=== PATIENT | male | born 1955 | race American Indian/Alaskan Native ===

== ENCOUNTER 2019-01-22 15:27 | Emergency (ER) | payer SELFPAY ==
[2019-01-22 15:47] VITALS: BP 110/78
--- NOTE | 2019-01-22 16:11 | Event Note ---
ED Screening Note Date of service: 01/22/19 Time: 16:09 ED Screening Note: This is a 63 y.o. M. that presents to the ER with left sided facial swelling and dental pain for 5 days. This initial assessment/diagnostic orders/clinical plan/treatment(s) is/are subject to change based on patients health status, clinical progression and re- assessment by fellow clinical providers in the ED. Further treatment and workup at subsequent clinical providers discretion. Patient/guardian urged not to elope from the ED as their condition may be serious if not clinically assessed and managed. Initial orders include:
[2019-01-22] MEDS ORDERED: HYDROcodone/ACETAMINOPHEN 5-325 MG TAB PO ONE (18:53)
[2019-01-22] MEDS ORDERED: AMOXICILLIN 500 MG CAP PO ONE (18:53)
--- NOTE | 2019-01-22 19:19 | Emergency Department Report ---
ED ENT HPI - General Chief complaint: Skin/Abscess/Foreign Body Stated complaint: MOUTH INFECTED Time Seen by Provider: 01/22/19 16:09 Source: patient Mode of arrival: Ambulatory Limitations: No Limitations - History of Present Illness Initial comments: This is a 63 y.o. M. that presents to the ER with left sided facial swelling and dental pain for 5 days. there is no throat or ear pain , dental pain is 5/10 aching, no facial swelling mild gum swelling. pt is tolerating po intake - Related Data Previous Rx's Medication Instructions Recorded Last Taken Type Amoxicillin [Trimox CAP] 500 mg PO Q8H 10 Days #30 capsule 01/22/19 Unknown Rx Chlorhexidine Mouthwash [Peridex] 15 ml MM BID #1 bottle 01/22/19 Unknown Rx traMADol [Ultram] 50 mg PO Q6HR PRN #12 tablet 01/22/19 Unknown Rx Allergies Allergy/AdvReac Type Severity Reaction Status Date / Time No Known Allergies Allergy Unverified 01/22/19 15:43 ED Dental HPI - General Chief complaint: Skin/Abscess/Foreign Body Stated complaint: MOUTH INFECTED Time Seen by Provider: 01/22/19 16:09 Source: patient Mode of arrival: Ambulatory Limitations: No Limitations - Related Data Previous Rx's Medication Instructions Recorded Last Taken Type Amoxicillin [Trimox CAP] 500 mg PO Q8H 10 Days #30 capsule 01/22/19 Unknown Rx Chlorhexidine Mouthwash [Peridex] 15 ml MM BID #1 bottle 01/22/19 Unknown Rx traMADol [Ultram] 50 mg PO Q6HR PRN #12 tablet 01/22/19 Unknown Rx Allergies Allergy/AdvReac Type Severity Reaction Status Date / Time No Known Allergies Allergy Unverified 01/22/19 15:43 ED Review of Systems ROS: Stated complaint: MOUTH INFECTED Other details as noted in HPI Constitutional: denies: chills, fever Eyes: denies: eye pain, eye discharge, vision change ENT: dental pain. denies: ear pain, throat pain Respiratory: denies: cough, shortness of breath, wheezing Cardiovascular: denies: chest pain, palpitations Endocrine: no symptoms reported Gastrointestinal: denies: abdominal pain, nausea, diarrhea Genitourinary: denies: urgency, dysuria Musculoskeletal: denies: back pain, joint swelling, arthralgia Skin: denies: rash, lesions Neurological: denies: headache, weakness, paresthesias Psychiatric: denies: anxiety, depression Hematological/Lymphatic: denies: easy bleeding, easy bruising ED Past Medical Hx - Past Medical History Previous Medical History?: No - Surgical History Past Surgical History?: No - Social History Smoking Status: Never Smoker Substance Use Type: None - Medications Home Medications: Home Medications Medication Instructions Recorded Confirmed Last Taken Type Amoxicillin [Trimox CAP] 500 mg PO Q8H 10 Days #30 capsule 01/22/19 Unknown Rx Chlorhexidine Mouthwash [Peridex] 15 ml MM BID #1 bottle 01/22/19 Unknown Rx traMADol [Ultram] 50 mg PO Q6HR PRN #12 tablet 01/22/19 Unknown Rx ED Physical Exam - General Limitations: No Limitations General appearance: alert, in no apparent distress - Head Head exam: Present: atraumatic, normocephalic - Eye Eye exam: Present: normal appearance - ENT ENT exam: Present: mucous membranes moist, TM's normal bilaterally, normal external ear exam - Expanded ENT Exam Expanded Mouth exam: Absent: trismus Teeth exam: Present: dental caries, dental tenderness # (21 abscess small, no drainage mild erythema gum swelling ) Throat exam: Positive: other (uvual midline no swelling no trismus no stridor no exudate no lesions). Negative: tonsillar erythema, tonsillomegaly, tonsillar exudate, R peritonsillar mass, L peritonsillar mass - Neck Neck exam: Present: normal inspection, full ROM. Absent: tenderness, lymphadenopathy - Respiratory Respiratory exam: Present: normal lung sounds bilaterally. Absent: respiratory distress, wheezes, stridor, chest wall tenderness - Cardiovascular Cardiovascular Exam: Present: regular rate, normal rhythm, normal heart sounds. Absent: systolic murmur, diastolic murmur, rubs, gallop - GI/Abdominal GI/Abdominal exam: Present: soft, normal bowel sounds - Rectal Rectal exam: Present: deferred - Extremities Exam Extremities exam: Present: normal inspection - Back Exam Back exam: Present: normal inspection, full ROM. Absent: tenderness - Neurological Exam Neurological exam: Present: alert, oriented X3 - Psychiatric Psychiatric exam: Present: normal affect, normal mood - Skin Skin exam: Present: warm, dry, intact, normal color. Absent: rash ED Course Vital Signs 01/22/19 15:44 Temperature 98.7 F Pulse Rate 106 H Respiratory 16 Rate Blood Pressure 110/78 O2 Sat by Pulse 98 Oximetry - I & D Lower Jaw Type of Procedure: Simple Site: dental abscess #21 Blade Size: 18g needle Progress: small dental abscess, I&D with 18g needle aspiration moderate purulent drainage, gauzge dress all bleeding is controlled, pain is relieve, pt given after care instructions will follow up with dentist in 1-2 days. pt declined dental block , tolerated procedure with minimal distress. ED Medical Decision Making - Medical Decision Making pt for dental abscess I&D see procedure note, all bleeding is controlled , pt given after care instructions will follow up with dentist in 1-2 days, dc to home with rx for amoxicillin, ultram, peridex , pt dc'd in stable condition at this time. Critical care attestation.: If time is entered above; I have spent that time in minutes in the direct care of this critically ill patient, excluding procedure time. ED Disposition Clinical Impression: Dental abscess Disposition: DC-01 TO HOME OR SELFCARE Is pt being admited?: No Does the pt Need Aspirin: No Condition: Stable Instructions: Dental Abscess (ED) Prescriptions: Chlorhexidine Mouthwash [Peridex] 15 ml MM BID #1 bottle Amoxicillin [Trimox CAP] 500 mg PO Q8H 10 Days #30 capsule traMADol [Ultram] 50 mg PO Q6HR PRN #12 tablet PRN Reason: Pain Referrals: [facility] [Outside] - 3-5 Days Forms: Work/School Release Form(ED) Time of Disposition: 19:27
== END 2019-01-22 19:30 | disposition home or self-care (01) ==
LOC: ED 15:27
DX: K04.7 Periapical abscess without sinus (principal); Z79.899 Other long term (current) drug therapy